=== PATIENT | male | born 1975 | race Caucasian/White ===

== ENCOUNTER 2018-03-30 19:25 | Emergency (ER) | payer OTHER ==
[~2018-03-30] VITALS: Ht 182.9 cm; Wt 109.3 kg
[2018-03-30 19:33] VITALS: Ht 182.9 cm; Wt 109.3 kg
[2018-03-30 21:05] VITALS: BP 135/87
== END 2018-03-30 21:05 | disposition home or self-care (01) ==
LOC: ED 19:25
DX: M75.21 Bicipital tendinitis, right shoulder (principal); K21.9 Gastro-esophageal reflux disease without esophagitis
CPT/HCPCS: J1885